=== PATIENT | male | born 1975 | race Two or more races ===

== ENCOUNTER 2018-02-23 03:13 | Emergency (ER) | payer OTHER ==
[~2018-02-23] VITALS: Ht 180.3 cm; Wt 115.2 kg
[~2018-02-23 03:13] MED LIST: GLYB1POW; LISIPOW; METFORMIN; SOMA; TRAMADOL; VICODIN
[2018-02-23 03:20] VITALS: BP 128/59
[2018-02-23 03:57] LABS: Basophils # (auto) 0.1 uL; Basophils % (auto) 0.7 % (0.0-2.0); Eosinophils # (auto) 0.1 uL; Eosinophils % (auto) 0.9 % (0.0-7.0); Hematocrit 48.3 % (41.0-53.0); Hemoglobin 16.9 g/dL (13.5-17.5); Lymphocytes # (auto) 1.9 uL; Lymphocytes % (auto) 13.8 % (10.0-50.0); Mean Corpuscular Hemoglobin 31.6 pg (28.0-32.0); Mean Corpuscular Volume 90.2 fL (80.0-100.0); Monocytes % (auto) 7.3 % (0.0-12.0); Neutrophils # (auto) 10.5 uL; Neutrophils % (auto) 77.3 % (37.0-80.0); Nucleated Red Blood Cells % 0.1 %; Platelet Count (auto) 263 10^3/uL (140-450); Red Blood Cells 5.35 10^6/uL (4.5-5.90); Red Cell Distribution Width 12.5 % (11.8-14.3); White Blood Cell 13.6 10^3/uL (4.4-10.8)
[2018-02-23 04:16] LABS: Albumin 4.2 g/dL (3.4-5.0); BUN/Creatinine Ratio 8.4; Bilirubin, Total 0.5 mg/dL (0.2-1.0); Calcium 9.1 mg/dL (8.5-10.1); Potassium 4.9 mmol/L (3.5-5.1); Total Protein 7.5 g/dL (6.4-8.2)
[2018-02-23] MEDS ORDERED: KETOROLAC TROMETH 60MG/2ML VIAL IM ONE (07:00)
[2018-02-23] MEDS ORDERED: HYDROcodone-ACET 10/325MG TAB PO ONE (07:00)
== END 2018-02-23 08:46 | disposition home or self-care (01) ==
LOC: ER 03:15
DX: S22.31XA Fracture of one rib, right side, initial encounter for closed fracture (principal); N20.0 Calculus of kidney; J45.909 Unspecified asthma, uncomplicated; E11.9 Type 2 diabetes mellitus without complications; E78.5 Hyperlipidemia, unspecified; R42 Dizziness and giddiness; I10 Essential (primary) hypertension; Z88.6 Allergy status to analgesic agent; W19.XXXA Unspecified fall, initial encounter; Y93.89 Activity, other specified; Y92.89 Other specified places as the place of occurrence of the external cause; Y99.8 Other external cause status
CPT/HCPCS: 36415; 70450; 70486; 71045; 71250; 72131; 73110; 74176; 80053; 82962; 85025; 96372; 99285; J1885

== ENCOUNTER 2019-06-11 10:26 | Inpatient (IN) | payer MEDICAID, OTHER ==
[~2019-06-11] VITALS: Ht 180.3 cm; Wt 116.0 kg
[2019-06-11 11:30] LABS: Urine Bacteria NONE SEEN /hpf (None Seen); Urine Blood Negative /uL (Negative); Urine Specific Gravity 1.032 (1.001-1.035); Urine WBC <1 /hpf (0 - 3)
[2019-06-11 11:34] LABS: Alcohol, Urine < 3.0 mg/dL (0-5); Amphetamine Screen, Urine NEGATIVE (NEGATIVE); Barbiturate Scree,Urine NEGATIVE (NEGATIVE); Benzodiazephine Screen, Urine NEGATIVE (NEGATIVE); Cannabinoid Screen, Urine POSITIVE (NEGATIVE); Cocaine Screen, Urine NEGATIVE (NEGATIVE); Opiate Scree,Urine POSITIVE (NEGATIVE); Phencyclidine Screen, Urine NEGATIVE (NEGATIVE)
[2019-06-11 11:35] LABS: Basophils # (auto) 0.1 uL; Basophils % (auto) 1.1 % (0.0-2.0); Eosinophils # (auto) 0.1 uL; Eosinophils % (auto) 0.6 % (0.0-7.0); Hematocrit 42.3 % (41.0-53.0); Hemoglobin 14.6 g/dL (13.5-17.5); Lymphocytes # (auto) 3.1 uL; Lymphocytes % (auto) 32.9 % (10.0-50.0); Mean Corpuscular Hgb Conc. 34.4 g/dL (32.0-36.0); Mean Corpuscular Volume 90.2 fL (80.0-100.0); Monocytes # (auto) 0.7 uL; Monocytes % (auto) 7.7 % (0.0-12.0); Neutrophils # (auto) 5.4 uL; Neutrophils % (auto) 57.7 % (37.0-80.0); Nucleated Red Blood Cells % 0.1 %; Platelet Count (auto) 206 10^3/uL (140-450); Red Blood Cells 4.69 10^6/uL (4.5-5.90); Red Cell Distribution Width 13.1 % (11.8-14.3); White Blood Cell 9.4 10^3/uL (4.4-10.8)
[2019-06-11 11:51] LABS: Anion Gap 5 (5-15); Blood Alcohol < 3.0 mg/dL (0-5); Blood Urea Nitrogen 16 mg/dL (7-18); Calcium 8.3 mg/dL (8.5-10.1); Carbon Dioxide 26 mmol/L (21-32); Chloride 102 mmol/L (98-107); Potassium 3.8 mmol/L (3.5-5.1); Sodium 133 mmol/L (136-145)
[2019-06-11 11:56] LABS: Alanine Aminotransferase 21 U/L (16-61); Alkaline Phosphatase 130 U/L (45-117); Aspartate Aminotransferase 13 U/L (15-37); Bilirubin, Total 0.3 mg/dL (0.2-1.0); GFR African American 112 mL/min; GFR Non-African American 93 mL/min; Total Protein 6.4 g/dL (6.4-8.2)
[2019-06-11 11:59] LABS: Glucose 470 mg/dL (74-106)
[2019-06-11] MEDS ORDERED: SODIUM CHLORIDE 0.9% 1,000 ML IV ONE ×2 (12:30→14:45)
[2019-06-11] MEDS ORDERED: InsuLIN REG 1unit/0.01ml Soln (100units/ml) IV ONE (13:45)
[2019-06-11] MEDS ORDERED: BACITRACIN TOP OINT 1 UD PKG TOP ONE (14:45)
[2019-06-11] MEDS ORDERED: DEXTROSE (50%) 50ML SYRG IV PRN (14:45)
[2019-06-11] MEDS ORDERED: PROMETHAZINE HCL 25 MG/ML 1ML IV PRN (14:45)
[2019-06-11] MEDS ORDERED: LACTULOSE 20Gm/30ML SOLN PO PRN (14:45)
[2019-06-11] MEDS ORDERED: NITROGLYCERIN 0.4 MG SL TAB SL PRN (14:45)
[2019-06-11 17:00] VITALS: BP 92/59
[2019-06-11] MEDS: ACCU-CHEK COMFORT CURVE STRIP VI SCH ×2 (17:19→20:00)
[2019-06-11] MEDS: SODIUM CHLORIDE 0.9% 1,000 ML IV SCH ×2 (17:19→21:18)
[2019-06-11] MEDS: InsuLIN REG 1unit/0.01ml Soln (100units/ml) SC SCH ×2 (17:48→20:00)
[2019-06-11] MEDS ORDERED: HYDR-531 PO (18:11)
[2019-06-11] MEDS ORDERED: MORP60TA25 PO (18:11)
[2019-06-11] MEDS ORDERED: TIZA4CAP PO (18:11)
[2019-06-11] MEDS ORDERED: ZOLP10TA PO (18:11)
[2019-06-11] MEDS ORDERED: QUET25TA37 PO (18:15)
[2019-06-11] MEDS ORDERED: BUSP5TAB51 PO (18:15)
[2019-06-11] MEDS ORDERED: SERT-274 PO (18:15)
[2019-06-11] MEDS ORDERED: LISI40TA PO (18:17)
[2019-06-11] MEDS ORDERED: OMEP20TA PO (18:17)
[2019-06-11] MEDS ORDERED: IBUP800T24 PO (18:17)
[2019-06-11] MEDS ORDERED: GABA100C9 PO (18:17)
[2019-06-11 20:00] VITALS: BP 111/73
[2019-06-11 21:34] VITALS: BP 111/73
[2019-06-11] MEDS: INSULIN LANTUS (GLARGINE) 1 /0.01ml (100units/ml) SC SCH (22:00)
[2019-06-11] MEDS: TEMAZEPAM 15 MG CAP PO PRN (22:49)
[2019-06-11] MEDS: ACETAMINOPHEN 500 MG TAB PO PRN (22:50)
[2019-06-12] MEDS: SODIUM CHLORIDE 0.9% 1,000 ML IV SCH ×4 (03:58→23:58)
[2019-06-12] MEDS: ACCU-CHEK COMFORT CURVE STRIP VI SCH ×5 (04:00→20:11)
[2019-06-12] MEDS: InsuLIN REG 1unit/0.01ml Soln (100units/ml) SC SCH ×6 (04:00→20:11)
[2019-06-12] MEDS: traMADol HCL 50 MG TAB PO PRN ×3 (04:32→22:22)
[2019-06-12 05:16] VITALS: BP 124/72
[2019-06-12 08:46] VITALS: BP 133/58
[2019-06-12] MEDS: ASPirin 81 mg TAB PO SCH (09:42)
[2019-06-12] MEDS: PANTOPRAZOLE 40 MG TAB PO SCH (09:42)
[2019-06-12] MEDS: INSULIN LANTUS (GLARGINE) 1 /0.01ml (100units/ml) SC SCH ×2 (09:42→22:18)
[2019-06-12] MEDS: ENOXAPARIN SOD 40 MG/0.4 ML SYRINGE SC SCH (09:42)
[2019-06-12 13:00] VITALS: BP 135/69
[2019-06-12 17:00] VITALS: BP 116/63
[2019-06-12 20:00] VITALS: BP 139/63
[2019-06-12 21:47] VITALS: BP 139/63
[2019-06-12] MEDS: TEMAZEPAM 15 MG CAP PO PRN (22:22)
[2019-06-13] MEDS: ACCU-CHEK COMFORT CURVE STRIP VI SCH ×6 (04:00→21:00)
[2019-06-13] MEDS: InsuLIN REG 1unit/0.01ml Soln (100units/ml) SC SCH ×6 (04:00→21:00)
[2019-06-13 05:00] VITALS: BP 133/52
[2019-06-13] MEDS: SODIUM CHLORIDE 0.9% 1,000 ML IV SCH ×2 (06:38→12:41)
[2019-06-13 06:59] LABS: Basophils # (auto) 0 uL; Basophils % (auto) 0.5 % (0.0-2.0); Eosinophils # (auto) 0.2 uL; Eosinophils % (auto) 1.7 % (0.0-7.0); Hemoglobin 15.3 g/dL (13.5-17.5); Lymphocytes # (auto) 4.4 uL; Lymphocytes % (auto) 48.8 % (10.0-50.0); Mean Corpuscular Hemoglobin 31.1 pg (28.0-32.0); Mean Corpuscular Hgb Conc. 34.8 g/dL (32.0-36.0); Mean Corpuscular Volume 89.2 fL (80.0-100.0); Monocytes # (auto) 0.7 uL; Monocytes % (auto) 7.7 % (0.0-12.0); Neutrophils # (auto) 3.7 uL; Neutrophils % (auto) 41.3 % (37.0-80.0); Nucleated Red Blood Cells % 0.2 %; Platelet Count (auto) 208 10^3/uL (140-450); Red Blood Cells 4.93 10^6/uL (4.5-5.90); Red Cell Distribution Width 12.6 % (11.8-14.3); White Blood Cell 8.9 10^3/uL (4.4-10.8)
[2019-06-13 07:15] LABS: Potassium 3.6 mmol/L (3.5-5.1)
[2019-06-13 07:19] LABS: BUN/Creatinine Ratio 14.5; Calcium 8.5 mg/dL (8.5-10.1); Magnesium 1.9 mg/dL (1.6-2.6)
[2019-06-13 09:00] VITALS: BP 137/51
[2019-06-13] MEDS: ENOXAPARIN SOD 40 MG/0.4 ML SYRINGE SC SCH (09:06)
[2019-06-13] MEDS: ASPirin 81 mg TAB PO SCH (09:06)
[2019-06-13] MEDS: INSULIN LANTUS (GLARGINE) 1 /0.01ml (100units/ml) SC SCH ×2 (09:06→21:36)
[2019-06-13] MEDS: PANTOPRAZOLE 40 MG TAB PO SCH (09:06)
[2019-06-13] MEDS: traMADol HCL 50 MG TAB PO PRN ×2 (09:07→20:16)
[2019-06-13 13:00] VITALS: BP 134/73
[2019-06-13 17:00] VITALS: BP 151/72
[2019-06-13 20:00] VITALS: BP 158/83
[2019-06-13] MEDS: TEMAZEPAM 15 MG CAP PO PRN (21:15)
[2019-06-13 21:57] VITALS: BP 158/83
[2019-06-14] MEDS: SODIUM CHLORIDE 0.9% 1,000 ML IV SCH ×4 (00:03→15:58)
[2019-06-14] MEDS: ACCU-CHEK COMFORT CURVE STRIP VI SCH ×5 (00:03→15:45)
[2019-06-14] MEDS: traMADol HCL 50 MG TAB PO PRN ×3 (02:13→15:45)
[2019-06-14] MEDS: InsuLIN REG 1unit/0.01ml Soln (100units/ml) SC SCH ×5 (04:42→16:17)
[2019-06-14] MEDS: ACETAMINOPHEN 500 MG TAB PO PRN (04:42)
[2019-06-14 05:00] VITALS: BP 132/75
[2019-06-14 09:19] VITALS: BP 158/89
[2019-06-14] MEDS: ASPirin 81 mg TAB PO SCH (09:19)
[2019-06-14] MEDS: PANTOPRAZOLE 40 MG TAB PO SCH (09:19)
[2019-06-14] MEDS: ENOXAPARIN SOD 40 MG/0.4 ML SYRINGE SC SCH (09:21)
[2019-06-14] MEDS: INSULIN LANTUS (GLARGINE) 1 /0.01ml (100units/ml) SC SCH (09:21)
[2019-06-14 12:59] VITALS: BP 155/80
[2019-06-14 16:32] VITALS: BP 145/85
[2019-06-14] MEDS ORDERED: LISINOPRIL 5 MG TAB PO ONE (19:30)
[2019-06-14 20:00] VITALS: BP 149/87
[2019-06-15] MEDS ORDERED: LISINOPRIL 5 MG TAB PO SCH (10:00)
== END 2019-06-14 20:45 | disposition home or self-care (01) | DRG 52 ==
LOC: EDSEX 10:26 → EDBD 10:26 → ER 10:26 → TELE 10:27 → TELE-WESTW 15:48
PROVIDERS: ADMIT Internal Medicine; ATTEND Internal Medicine
DX: G93.41 Metabolic encephalopathy (principal); E11.51 Type 2 diabetes mellitus with diabetic peripheral angiopathy without gangrene; R00.1 Bradycardia, unspecified; E11.65 Type 2 diabetes mellitus with hyperglycemia; F22 Delusional disorders; G62.9 Polyneuropathy, unspecified; I10 Essential (primary) hypertension; E87.1 Hypo-osmolality and hyponatremia; M54.5 Low back pain; E78.5 Hyperlipidemia, unspecified; F51.3 Sleepwalking [somnambulism]; J45.909 Unspecified asthma, uncomplicated; Z80.0 Family history of malignant neoplasm of digestive organs; Z80.3 Family history of malignant neoplasm of breast; Z83.3 Family history of diabetes mellitus; Z88.5 Allergy status to narcotic agent; Z90.49 Acquired absence of other specified parts of digestive tract
CPT/HCPCS: 36415; 51702; 70450; 71045; 72125; 80048; 80053; 80307; 80320; 81001; 82550; 82962; 83036; 83735; 84484; 85025; 85652; 93005; 93306; 94761; 96361; 96374; G0378; J1815